=== PATIENT | female | born 1980 | race Caucasian/White ===

== ENCOUNTER 2019-01-10 08:18 | Day surgery (SDC) | payer OTHER ==
[2019-01-10] MEDS ORDERED: PROPOFOL 200 MG/20 ML VIAL IV ONE (08:24)
[2019-01-10] MEDS ORDERED: MIDAZOLAM HCL 2 MG/2 ML INJ ONE (08:25)
[2019-01-10] MEDS ORDERED: GLYCOPYRROLATE 0.2 MG/ML SYR ONE (08:25)
[2019-01-10 08:26] LABS: Absolute Lymphocytes (CBC) 2.2 K/uL (0.7-4.9); Basophils % 0.5 % (0-1.3); Hematocrit 36.4 % (36.0-45.0); Lymphocytes % 29.4 % (15.3-44.8); MPV 7.6 fL (7.6-11.3); RBC Red Blood Cell Count 5.02 M/uL (3.86-4.86)
[2019-01-10] MEDS ORDERED: LIDOCAINE 2% MPF 5 ML VIAL ONE (08:26)
[2019-01-10] MEDS ORDERED: ROCURONIUM 50 MG/5 ML VIAL IV ONE ×2 (08:26→10:16)
[2019-01-10] MEDS ORDERED: FENTANYL CITR 250 MCG/5 ML ONE ×2 (08:26→10:16)
[2019-01-10] MEDS ORDERED: ONDANSETRON 4 MG/2 ML VIAL ONE (08:31)
[2019-01-10] MEDS ORDERED: NEOSTIGMINE 1 MG/ML -10 ML VIAL ONE (08:31)
[2019-01-10 08:33] LABS: Specific Gravity 1.025 (1.005-1.030); Urine Appearance CLEAR; Urine Blood NEGATIVE (NEG); Urine Color YELLOW; Urine Glucose NEGATIVE (NEG); Urine Protein NEGATIVE (NEG); Urine Specific Gravity 1.025 (1.005-1.030)
[2019-01-10 08:39] LABS: Urine Bilirubin NEGATIVE (NEG); Urine Microscopic Reflex NO UMIC
[2019-01-10] MEDS ORDERED: Ringers Lactate 1,000 ML IV ONE ×3 (08:41→15:47)
[2019-01-10] MEDS ORDERED: SCOPOLAMINE HYDROBROMIDE PATCH TD ONE (08:41)
[2019-01-10] MEDS ORDERED: CEFAZOLIN/SWI 1gm 1 GM/10 ML SYR ONE (08:41)
[2019-01-10] MEDS ORDERED: CEFAZOLIN SODIUM 1 GM/VIAL ONE ×2 (08:59→10:03)
[2019-01-10] MEDS ORDERED: Mastisol Adhesive Liq ONE ×3 (08:59→15:47)
[2019-01-10] MEDS ORDERED: NS 0.9% VIAL 20 ML ONE (08:59)
[2019-01-10] MEDS ORDERED: GENTAMICIN SULF 80 MG/2ML INJ ONE ×2 (08:59→10:03)
[2019-01-10] MEDS ORDERED: BACITRACIN 50000 UNIT VIAL ONE (09:00)
[2019-01-10] MEDS ORDERED: NS 0.9% VIAL 10 ML ONE (10:03)
[2019-01-10] MEDS ORDERED: KETOROLAC 30 MG/ML INJ ONE (10:16)
[2019-01-10] MEDS: Ringers Lactate 1,000 ML IV ONE ×4 (12:30→15:47)
[2019-01-10] MEDS ORDERED: MEPERIDINE HCL 25 MG/0.5 ML ONE ×2 (13:07→13:40)
[2019-01-10] MEDS ORDERED: FENTANYL CITR 100 MCG/2 ML ONE (14:13)
--- NOTE | 2019-01-14 09:44 | OP ---
Surgeon: Olayinka Robertson MD Cylinder Steamer: Yovani. Preoperative Diagnoses: Breast descent and excess skin, status post massive weight loss. Postoperative Diagnoses: Breast descent and excess skin, status post massive weight loss. Procedure Performed: Breast lift and brachioplasty. Anesthesia: General. Description Of Procedure: After satisfactory induction of general anesthesia, the chest was prepped with DuraPrep, dry sterile drapes applied in usual manner. 45 mm template was used to outline the right and left areolas. Then, a transverse curvilinear inferior incisions were made and the remaining skin was de-epithelialized with EpiCut. A transverse incision was made cephalad. Flap thinned to 1.2 cm. Flap elevation continued towards the sternum, clavicle , and anterior axillary line. Then on both sides, the inferior incisions were made. Conization was performed with 2-0 PDS sutures. Then after the cone was formed, straps were elevated at 12 o'clock, 1:30 and 3 o'clock position. The straps were then woven in and out of pectoralis major muscle, back to the base of the cone, back to pectoralis muscle, back to the base of the cone, sewn to itself with PDS suture. This was done for 12 o'clock 130 straps. The 3 o' clock strap was swen over the sternum at the 3 o'clock position. Mirror image was done on the opposite side. Wound was temporarily stapled shut and sides compared. Prior to the conization, excess breast fat, inferior and lateral, was resected. After that, the patient was then returned supine. The brook were removed. The wound was irrigated with antibiotic solution. 10 BRIONNA brought out the axilla, and the wound closed in layers with 3-0 Vicryl subcu, 3-0 PDS running subcuticular tied in the vertical meridian of the breast. Patient was sat up. Site for new nipple-areolar complex was marked out. Tissue was cored out with a 45 mm template and then closed in layers, 4-0 PDS, followed by 4-0 PDS running subcuticular. Attention was then turned to arm. Everything was changed including gown and gloves, light handles, all the instruments. Then, the arms were sequentially prepped with DuraPrep. Stockinette was applied and dry sterile drapes applied in usual manner. A longitudinal incision made from the medial epicondyle toward the anterior apex of the axilla . The incision was taken down to the superficial fascia and _flap was elevated off the fascia and then excess skin cut off after stapling it to the anterior closure. Then, the wound was closed after a 10 BRIONNA was placed and distally sewn in place with 2- 0 silk, layers closed with 3-0 Vicryl on subcu, 4-0 PDS running subcuticular, followed by Steri-Strips and brook. Both sides were done simultaneously, and then tincture of benzoin, Steri-Strips were applied over the breast, fluffs, and Navdeep wrap. Patient tolerated the procedure well. The amount of tissue removed from the right breast with 182 g, from left breast 136 g. There was 134 g removed from both the right and left arms. ISAIAS Voice ID: [id number] Report ID: [id number]
== END 2019-01-10 18:30 | disposition home or self-care (01) ==
LOC: OR 08:18
PROVIDERS: ATTEND Specialist
PROC: 0J0D0ZZ Alteration of Right Upper Arm Subcutaneous Tissue and Fascia, Open Approach (ICD-10-PCS; 2019-01-10)
PROC: 0H0V0ZZ Alteration of Bilateral Breast, Open Approach (ICD-10-PCS; principal; 2019-01-10 09:00)
PROC: 0J0F0ZZ Alteration of Left Upper Arm Subcutaneous Tissue and Fascia, Open Approach (ICD-10-PCS; 2019-01-10 09:00)
DX: N64.81 Ptosis of breast (principal); L98.7 Excessive and redundant skin and subcutaneous tissue; R63.4 Abnormal weight loss; Z88.2 Allergy status to sulfonamides; Z91.09 Other allergy status, other than to drugs and biological substances
CPT/HCPCS: 19316; 15836; 85025; 36415; 81025; 88305; 81003; J2704; J2710; J1580 ×2; J2250; J3010 ×3; J2175 ×2; J0690 ×3; J2405